=== PATIENT | female | born 1955 | race Caucasian/White ===

== ENCOUNTER → 2017-04-20 | Outpatient (CLI) | payer BC | END | disposition home or self-care (01) | LOC: CFH 09:00 | PROVIDERS: ATTEND Nurse Practitioner | DX: Z12.31 Encounter for screening mammogram for malignant neoplasm of breast (principal) | CPT/HCPCS: G0202 ==

== ENCOUNTER → 2018-12-24 | Outpatient (CLI) | payer MEDICARE ==
[~2018-12-24] MED LIST: HYDROCHLOROTH12.5 MG PO; LISI-167 PO
== END | disposition home or self-care (01) ==
LOC: CFH 12:41
PROVIDERS: ATTEND Nurse Practitioner
DX: Z12.31 Encounter for screening mammogram for malignant neoplasm of breast (principal); Z13.820 Encounter for screening for osteoporosis; M81.0 Age-related osteoporosis without current pathological fracture; N95.8 Other specified menopausal and perimenopausal disorders; Z78.0 Asymptomatic menopausal state
CPT/HCPCS: 77080; 77067

== ENCOUNTER → 2019-10-27 | Outpatient (CLI) | payer MEDICARE | END | disposition home or self-care (01) | LOC: CVU 06:39 | PROVIDERS: ATTEND Internal Medicine Cardiovascular Disease | DX: I08.8 Other rheumatic multiple valve diseases (principal); I10 Essential (primary) hypertension; I48.0 Paroxysmal atrial fibrillation; R60.9 Edema, unspecified | CPT/HCPCS: 0399T; 78452; 93017; 93306; A9502 ==

== ENCOUNTER 2020-08-25 04:25 | Emergency (ER) | payer MEDICARE ==
[~2020-08-25] VITALS: Ht 162.6 cm; Wt 82.9 kg
[2020-08-25 04:27] VITALS: BP 163/82
--- NOTE | 2020-08-25 04:36 | NUR ---
PT WALKS TO ROOM, WITH STEADY GAIT, NO LIMP. CHANGES INTO GOWN WITH NO PROBLEMS. STATES TOOK MOTRIN AND NAPROXYN FEW HOURS AGO BUT NO RELIEF TO LOWER BACK PAIN AND SPASMS. NO INJURY, NO LOSS OF BOWEL OR BLADDER CONTROL, NO NUMBNESS TINGLING. WAITING FOR ERP EVAL. PT IN NAD.
[2020-08-25] MEDS ORDERED: KETOROLAC 30 MG/1 ML ONE (04:49)
[2020-08-25] MEDS ORDERED: HYDROcodone/APAP 5/325 TABLET ONE (04:49)
[2020-08-25] MEDS ORDERED: CYCLOBENZAPRINE 10 MG TABLET ONE (04:49)
[2020-08-25] MEDS ORDERED: CYCLOBENZAPRINE 10 MG TABLET PO ONE (05:00)
[2020-08-25] MEDS ORDERED: ONDANSETRON ODT 4 MG PO ONE (05:00)
[2020-08-25] MEDS ORDERED: HYDROcodone/APAP 5/325 TABLET PO ONE (05:00)
[2020-08-25] MEDS ORDERED: KETOROLAC 30 MG/1 ML IM ONE (05:00)
--- NOTE | 2020-08-25 05:01 | NUR ---
MEDICATED PER ORDER. LAB HERE DRAWING BLOOD. REQUESTED CLEAN CATCH SPECIMEN.
[2020-08-25] MEDS ORDERED: ONDANSETRON ODT 4 MG ONE (05:07)
[2020-08-25 05:21] LABS: BASOPHILS % (AUTO) 1 % (0-1); EOSINOPHILS % (AUTO) 3 % (1-7); LYMPHOCYTES % (AUTO) 27 % (22-44); MEAN CORPUSCULAR HEMOGLOBIN 32.5 pg (27.0-34.8); MEAN CORPUSCULAR HGB CONC 34.3 g/dL (32.4-35.8); MEAN PLATELET VOLUME 6.4 fL (7.4-10.4); MONOCYTES % (AUTO) 13 % (2-9); NEUTROPHILS % (AUTO) 57 % (42-75); PLATELET COUNT 243 x10^3/uL (130-400); RED BLOOD COUNT 4.37 x10^6/uL (3.82-5.3); RED CELL DISTRIBUTION WIDTH 13.4 % (9.6-15.2)
[2020-08-25 05:31] LABS: ALBUMIN 4.7 g/dL (3.4-5.0); ANION GAP 5 mmol/L (5-15); CALCIUM 8.9 mg/dL (8.5-10.1); CHLORIDE 101 mmol/L (98-107)
[2020-08-25 05:34] LABS: ALANINE AMINOTRANSFERASE 38 U/L (12-78); ALKALINE PHOSPHATASE 117 U/L (45-117); BILIRUBIN,TOTAL 0.7 mg/dL (0.2-1.0); CREATININE 0.81 mg/dL (0.55-1.02); MD NO; TOTAL PROTEIN 8.1 g/dL (6.4-8.2)
--- NOTE | 2020-08-25 05:34 | NUR ---
PT REPORTS, SLIGHT DECREASE IN BACK PAIN SINCE MEDS. HAS BEEN UP AMBULATORY DOWN HALLWAY TO BATHROOM AND BACK. STEADY GAIT.
--- NOTE | 2020-08-25 05:42 | NUR ---
PER LAB URINE WAS RECEIVED, THEY WILL RUN IT NOW.
[2020-08-25 05:51] LABS: MICROSCOPIC NOT IND
== END 2020-08-25 06:43 | disposition home or self-care (01) ==
LOC: ED 05:45
DX: S29.012A Strain of muscle and tendon of back wall of thorax, initial encounter (principal); I10 Essential (primary) hypertension; Z88.0 Allergy status to penicillin; X58.XXXA Exposure to other specified factors, initial encounter; Y93.89 Activity, other specified; Y92.89 Other specified places as the place of occurrence of the external cause; Y99.8 Other external cause status
CPT/HCPCS: 36415; 74176; 80053; 81003; 83690; 85025; 96372; 99284; J1885; Q0162